=== PATIENT | female | born 1965 | race Hispanic/Latino ===

== ENCOUNTER 2022-08-04 11:51 | Emergency (ER) | payer MEDICARE ==
[2022-08-04 12:14] LABS: BASOPHILS % (AUTO) 0.3 % (0.0-5.0); EOSINOPHILS % (AUTO) 3.5 % (0.0-8.0); HEMATOCRIT 40.5 % (36-48); LYMPHOCYTES % (AUTO) 20.8 % (21.0-51.0); MEAN CORPUSCULAR HEMOGLOBIN 27.3 pg (27.0-33.0); MEAN CORPUSCULAR HGB CONC 31.9 g/dL (32.0-36.0); MEAN CORPUSCULAR VOLUME 85.6 fL (79-99); MONOCYTES % (AUTO) 8.2 % (3.0-13.0); NEUTROPHILS % (AUTO) 66.9 % (40.0-77.0); PLATELET COUNT (AUTO) 273 K/uL (130-400); RED BLOOD CELL COUNT(AUTO) 4.73 MIL/uL (4.00-5.50); RED CELL DISTRIBUTION WIDTH 13.4 % (11.0-15.5)
[2022-08-04 12:25] LABS: INR 0.93 (0.85-1.15); PROTHROMBIN TIME 9.8 SEC (9.6-11.6)
[2022-08-04 12:27] LABS: PARTIAL THROMBOPLASTIN TIME 25.4 SEC (26.3-35.5)
[2022-08-04 12:38] LABS: CREATININE 1.5 mg/dL (0.5-1.5); POTASSIUM 4.3 mmol/L (3.5-5.1)
[2022-08-04 12:41] LABS: TOTAL PROTEIN, SERUM 6.7 g/dL (6.0-8.3)
[2022-08-04] MEDS ORDERED: 0.9%NACL 1000ML 1,000 ML IV ONE (13:00)
[2022-08-04] MEDS ORDERED: IOHEXOL 350 MG/ML 100ML INFUS..BTL IV ONE (13:44)
[2022-08-04] MEDS ORDERED: ASPIRIN 81MG CHEW TAB PO ONE (15:30)
[2022-08-04] MEDS ORDERED: INSU100I35 SQ (15:55)
[2022-08-04] MEDS ORDERED: HYDR12.54 PO (15:55)
[2022-08-04] MEDS ORDERED: BUME1TAB6 PO (15:55)
[2022-08-04 20:41] VITALS: BP 164/70
== END 2022-08-04 23:39 | disposition short-term general hospital (02) ==
LOC: EDH 11:51
DX: I63.9 Cerebral infarction, unspecified (principal); I69.892 Facial weakness following other cerebrovascular disease; E11.65 Type 2 diabetes mellitus with hyperglycemia; Z20.822 Contact with and (suspected) exposure to COVID-19; E78.00 Pure hypercholesterolemia, unspecified; H54.62 Unqualified visual loss, left eye, normal vision right eye; I10 Essential (primary) hypertension; Z88.0 Allergy status to penicillin; Z79.4 Long term (current) use of insulin; Z79.899 Other long term (current) drug therapy; Z90.49 Acquired absence of other specified parts of digestive tract
CPT/HCPCS: 84484; 80053; 85025; 85610; 85730; 82948; 36415; 87635; 70450; 70496; 70498; 99291; 96360; 92522; 92610; 93005; C9803; J7030; Q9967

== ENCOUNTER 2022-11-30 22:35 | Emergency (ER) | payer MEDICARE ==
[~2022-11-30 22:35] MED LIST: BUME1TAB6 PO; HYDR12.54 PO; INSU100I35 SQ
[2022-11-30] MEDS ORDERED: ONDANSETRON 4MG INJ IVP ONE (23:00)
[2022-11-30] MEDS ORDERED: 0.9%NACL 1000ML 1,000 ML IV SCH (23:00)
[2022-11-30 23:46] LABS: BASOPHILS % (AUTO) 0.3 % (0.0-5.0); EOSINOPHILS % (AUTO) 1.2 % (0.0-8.0); HEMATOCRIT 38.2 % (36-48); LYMPHOCYTES % (AUTO) 14.3 % (21.0-51.0); MEAN CORPUSCULAR HEMOGLOBIN 27.1 pg (27.0-33.0); MEAN CORPUSCULAR HGB CONC 31.7 g/dL (32.0-36.0); MEAN CORPUSCULAR VOLUME 85.7 fL (79-99); MONOCYTES % (AUTO) 6.8 % (3.0-13.0); PLATELET COUNT (AUTO) 291 K/uL (130-400); RED BLOOD CELL COUNT(AUTO) 4.46 MIL/uL (4.00-5.50); RED CELL DISTRIBUTION WIDTH 12.9 % (11.0-15.5); WHITE BLOOD COUNT (AUTO) 12.9 K/uL (4.8-10.8)
[2022-12-01 00:01] LABS: CREATININE 1.8 mg/dL (0.5-1.5); POTASSIUM 3.8 mmol/L (3.5-5.1)
[2022-12-01 00:06] LABS: ALBUMIN 1.8 g/dL (3.5-5.0); TOTAL PROTEIN, SERUM 5.5 g/dL (6.0-8.3)
[2022-12-01] MEDS ORDERED: ACETAMINOPHEN 500 MG TABLET PO ONE (01:00)
[2022-12-01] MEDS ORDERED: CLON1PAT4 TD (02:48)
[2022-12-01] MEDS ORDERED: ONDA4TAB10 PO (02:48)
[2022-12-01] MEDS ORDERED: LABE200T7 PO (02:48)
[2022-12-01] MEDS ORDERED: HYDRALAZINE 20MG/ML VIAL IV ONE (03:00)
[2022-12-01 03:03] VITALS: BP 151/69
== END 2022-12-01 03:04 | disposition home or self-care (01) ==
LOC: EDH 22:35
DX: R11.10 Vomiting, unspecified (principal); I10 Essential (primary) hypertension; N28.9 Disorder of kidney and ureter, unspecified; F32.A Depression, unspecified; E78.00 Pure hypercholesterolemia, unspecified; E11.9 Type 2 diabetes mellitus without complications; Z90.49 Acquired absence of other specified parts of digestive tract; Z20.822 Contact with and (suspected) exposure to COVID-19; Z88.0 Allergy status to penicillin; Z79.899 Other long term (current) drug therapy; Z79.4 Long term (current) use of insulin
CPT/HCPCS: 99284; 96374; 87635; 96361; 84484; 80053; 83690; 85025; 82010; 36415; 96375; C9803; J7030; J2405; J0360